=== PATIENT | female | born 1960 | race African-American/Black ===

== ENCOUNTER 2017-02-17 18:13 | Emergency (ER) | payer MEDICAID ==
[~2017-02-17] VITALS: Ht 167.6 cm; Wt 90.9 kg
[~2017-02-17 18:13] MED LIST: ASPI-1182 PO; CARV6 PO; GLIP5 PO; HYDR-3965 PO; LOSA50TA37 PO; METF500T4 PO; OMEP20 PO; PRAV40TA4 PO; SPIR25 PO; ZOLP10TA7 PO
[2017-02-17 18:46] LABS: GLUCOSE,POINT OF CARE 211 MG/DL (70-110)
[2017-02-17] MEDS ORDERED: CARV12 PO (18:46)
[2017-02-17] MEDS ORDERED: HYDROCODONE/ACETAMINOPHEN 10-325 MG TABLET PO ONE (20:45)
[2017-02-17 21:30] VITALS: BP 123/65
== END 2017-02-17 21:57 | disposition home or self-care (01) ==
LOC: EMS 18:28
DX: M79.652 Pain in left thigh (principal); M62.9 Disorder of muscle, unspecified; E11.9 Type 2 diabetes mellitus without complications; E78.00 Pure hypercholesterolemia, unspecified; I11.0 Hypertensive heart disease with heart failure; I50.9 Heart failure, unspecified; F11.20 Opioid dependence, uncomplicated; J40 Bronchitis, not specified as acute or chronic; F17.210 Nicotine dependence, cigarettes, uncomplicated; Z88.1 Allergy status to other antibiotic agents
CPT/HCPCS: 82962; 93971; 99284; 99406

== ENCOUNTER 2017-05-14 09:36 | Emergency (ER) | payer MEDICAID ==
[~2017-05-14] VITALS: Ht 167.6 cm; Wt 92.5 kg
[~2017-05-14 09:36] MED LIST changes: +CARV12 PO; -CARV6 PO
[2017-05-14] MEDS ORDERED: EVOL140S IM (10:03)
[2017-05-14] MEDS ORDERED: INSULIN REGULAR, HUMAN 100 UNITS/ML IVP ONE (10:15)
[2017-05-14] MEDS ORDERED: SODIUM CHLORIDE 0.9% 1,000 ML IV ONE ×2 (10:15→11:45)
[2017-05-14 10:59] LABS: CALCIUM, TOTAL 9.8 mg/dL (8.8-10.5); CREATININE 1.86 mg/dL (0.60-1.30)
[2017-05-14 11:17] LABS: GLUCOSE,POINT OF CARE 387 MG/DL (70-110)
[2017-05-14 12:03] VITALS: BP 125/53
[2017-05-14 12:28] LABS: GLUCOSE,POINT OF CARE 338 MG/DL (70-110)
== END 2017-05-14 12:55 | disposition home or self-care (01) ==
LOC: EMS 09:37
DX: E11.65 Type 2 diabetes mellitus with hyperglycemia (principal); N28.9 Disorder of kidney and ureter, unspecified; I11.0 Hypertensive heart disease with heart failure; I50.9 Heart failure, unspecified; E78.00 Pure hypercholesterolemia, unspecified; J40 Bronchitis, not specified as acute or chronic; F17.210 Nicotine dependence, cigarettes, uncomplicated; Z88.2 Allergy status to sulfonamides
CPT/HCPCS: 36415; 80048; 82962; 96361; 96374; 99284; J1815; J7030

== ENCOUNTER → 2018-07-23 | Outpatient (CLI) | payer MEDICARE, OTHER ==
[~2018-07-23] MED LIST changes: +EVOL140S IM; -LOSA50TA37 PO; +LOSA50TA64 PO; +METF-960 PO; -METF500T4 PO; -PRAV40TA4 PO
== END | disposition home or self-care (01) ==
LOC: RADPV 08:28
PROVIDERS: ATTEND Hospitalist
DX: I13.0 Hypertensive heart and chronic kidney disease with heart failure and stage 1 through stage 4 chronic kidney disease, or unspecified chronic kidney disease (principal); E11.22 Type 2 diabetes mellitus with diabetic chronic kidney disease; N18.3 Chronic kidney disease, stage 3 (moderate); I50.9 Heart failure, unspecified
CPT/HCPCS: 76770

== ENCOUNTER 2021-02-10 09:02 | Emergency (ER) | payer MEDICARE, OTHER ==
[~2021-02-10] VITALS: Ht 167.6 cm; Wt 96.4 kg
[~2021-02-10 09:02] MED LIST changes: -ASPI-1182 PO; +ASPI-1444 PO; -EVOL140S IM; +EVOL140S2 SQ; -HYDR-3965 PO; +HYDR-4723 PO; +LOSA50TA37 PO; -LOSA50TA64 PO; +SPIR-37 PO; -SPIR25 PO; -ZOLP10TA7 PO; +ZOLP10TA8 PO
[2021-02-10] MEDS ORDERED: ONDANSETRON HCL 4 MG/2 ML VIAL IVP ONE (09:30)
[2021-02-10 09:42] LABS: COVID AG,FIA SOURCE NASOPHARYNGEAL
[2021-02-10 09:44] LABS: BASOPHILS % (AUTO) 1.3 % (0.0-2.0); EOSINOPHILS % (AUTO) 11.1 % (1.0-6.0); HEMATOCRIT 45.1 % (36-46); HEMOGLOBIN 14.4 g/dL (12.0-16.0); LYMPHOCYTES # (AUTO) 1.8 K/uL (1.0-4.8); MEAN CORPUSCULAR HEMOGLOBIN 28.7 pg (26.0-34.0); MEAN CORPUSCULAR HGB CONC 31.9 G/dL (31.0-37.0); MEAN CORPUSCULAR VOLUME 90 fL (80-100); MONOCYTES # (AUTO) 0.5 K/uL (0.1-1.0); MONOCYTES % (AUTO) 7.6 % (2.0-9.0); NEUTROPHILS # (AUTO) 3.9 K/uL (1.8-7.7); PLATELET COUNT (AUTO) 218 K/uL (150-450); RED BLOOD CELL COUNT(AUTO) 5.03 MIL/uL (4.00-5.20); RED CELL DISTRIBUTION WIDTH 16.5 % (11.5-14.5)
[2021-02-10] MEDS ORDERED: FAMOTIDINE 10 MG/ML 2 ML VIAL IVP ONE (09:45)
[2021-02-10 09:52] LABS: CALCIUM, TOTAL 9.6 mg/dL (8.8-10.5); CREATININE 1.57 mg/dL (0.60-1.30); POTASSIUM 4.2 mmol/L (3.5-5.1)
[2021-02-10 09:58] LABS: ALBUMIN 4.2 g/dL (3.4-5.0); BILIRUBIN,TOTAL 0.3 mg/dL (0.1-1.0); TOTAL PROTEIN, SERUM 8.4 g/dL (6.4-8.2)
[2021-02-10] MEDS ORDERED: POTASSIUM CHL 10 MEQ/D5-0.45NS 1,000 ML IV ONE (10:45)
[2021-02-10 12:27] VITALS: BP 125/70
[2021-02-10 12:51] LABS: APPEARANCE,URINE CLOUDY (CLEAR); BILIRUBIN,URINE NEGATIVE (NEGATIVE); GLUCOSE, URINE (UA) NEGATIVE (NEGATIVE); KETONES,URINE NEGATIVE (NEGATIVE); LEUKOCYTE ESTERASE ,URINE NEGATIVE (NEGATIVE); NITRATE,URINE NEGATIVE (NEGATIVE); OCCULT BLOOD,URINE NEGATIVE (NEGATIVE); PH,URINE 5.5 (5.0-8.0); PROTEIN,URINE NEGATIVE (NEGATIVE)
[2021-02-10 12:55] LABS: BACTERIA,URINE None Seen /HPF (None Seen); RBC,URINE None Seen /HPF (0-2); SQUAMOUS EPITHELIAL CELL,UR Many /LPF (None Seen); WBC,URINE None Seen /HPF (0-5)
[2021-02-23] MEDS ORDERED: PIOG15TA66 PO (12:52)
[2021-02-23] MEDS ORDERED: DULA1.5P SQ (12:52)
[2021-02-23] MEDS ORDERED: PANT-31 PO (12:52)
[2021-02-23] MEDS ORDERED: CHOL-35 PO (12:52)
[2021-02-23] MEDS ORDERED: ACET-2247 PO (12:56)
[2021-02-23] MEDS ORDERED: CEFU250T87 PO (12:57)
[2021-02-23] MEDS ORDERED: METR500 PO (12:58)
== END 2021-02-10 12:49 | disposition left against medical advice (07) ==
LOC: EMS 09:02
DX: K80.20 Calculus of gallbladder without cholecystitis without obstruction (principal); R11.2 Nausea with vomiting, unspecified; R77.8 Other specified abnormalities of plasma proteins; I11.0 Hypertensive heart disease with heart failure; I50.9 Heart failure, unspecified; E11.9 Type 2 diabetes mellitus without complications; E78.00 Pure hypercholesterolemia, unspecified; F17.210 Nicotine dependence, cigarettes, uncomplicated; Z88.2 Allergy status to sulfonamides; Z79.84 Long term (current) use of oral hypoglycemic drugs; Z79.82 Long term (current) use of aspirin; Z79.899 Other long term (current) drug therapy; Z20.822 Contact with and (suspected) exposure to COVID-19
CPT/HCPCS: 36415; 71045; 74176; 76705; 76856; 80053; 81001; 82962; 83690; 84484; 85025; 87426; 93005; 96361; 96374; 96375; 99285; J2405; J3480; J3490

== ENCOUNTER 2021-02-19 13:00 | Emergency (ER) | payer MEDICARE, OTHER ==
[~2021-02-19] VITALS: Ht 167.6 cm; Wt 96.4 kg
[2021-02-19] MEDS ORDERED: MORPHINE SULFATE 2 MG/ML SYRINGE IVP ONE (13:45)
[2021-02-19] MEDS ORDERED: ONDANSETRON HCL 4 MG/2 ML VIAL IVP ONE (13:45)
[2021-02-19] MEDS ORDERED: SODIUM CHLORIDE 0.9% 1,000 ML IV ONE ×2 (13:45→14:45)
[2021-02-19 14:02] LABS: BASOPHILS % (AUTO) 1.3 % (0.0-2.0); EOSINOPHILS % (AUTO) 9.8 % (1.0-6.0); HEMATOCRIT 44.2 % (36-46); HEMOGLOBIN 14.1 g/dL (12.0-16.0); LYMPHOCYTES # (AUTO) 1.8 K/uL (1.0-4.8); LYMPHOCYTES % (AUTO) 20.9 % (22.0-44.0); MEAN CORPUSCULAR HEMOGLOBIN 28.8 pg (26.0-34.0); MEAN CORPUSCULAR HGB CONC 31.9 G/dL (31.0-37.0); MEAN CORPUSCULAR VOLUME 90 fL (80-100); MONOCYTES # (AUTO) 0.5 K/uL (0.1-1.0); NEUTROPHILS # (AUTO) 5.2 K/uL (1.8-7.7); PLATELET COUNT (AUTO) 192 K/uL (150-450); RED CELL DISTRIBUTION WIDTH 16.4 % (11.5-14.5)
[2021-02-19 14:12] LABS: CALCIUM, TOTAL 9.4 mg/dL (8.8-10.5); CREATININE 1.35 mg/dL (0.60-1.30); POTASSIUM 3.7 mmol/L (3.5-5.1)
[2021-02-19 14:15] VITALS: BP 144/80
[2021-02-19] MEDS ORDERED: LORazepam 2 MG/ML VIAL IVP ONE (14:15)
[2021-02-19] MEDS ORDERED: HALOPERIDOL LACTATE 5 MG/ML VIAL IVP ONE (14:15)
[2021-02-19 14:22] LABS: ALBUMIN 4.1 g/dL (3.4-5.0); BILIRUBIN,TOTAL 0.3 mg/dL (0.1-1.0)
[2021-02-23] MEDS ORDERED: DULA1.5P SQ (12:52)
[2021-02-23] MEDS ORDERED: PIOG15TA66 PO (12:52)
[2021-02-23] MEDS ORDERED: PANT-31 PO (12:52)
[2021-02-23] MEDS ORDERED: CHOL-35 PO (12:52)
[2021-02-23] MEDS ORDERED: ACET-2247 PO (12:56)
[2021-02-23] MEDS ORDERED: CEFU250T87 PO (12:57)
[2021-02-23] MEDS ORDERED: METR500 PO (12:58)
== END 2021-02-19 16:37 | disposition home or self-care (01) ==
LOC: EMS 13:00
DX: R10.32 Left lower quadrant pain (principal); R11.2 Nausea with vomiting, unspecified; F41.9 Anxiety disorder, unspecified; I11.0 Hypertensive heart disease with heart failure; I50.9 Heart failure, unspecified; E78.00 Pure hypercholesterolemia, unspecified; F17.210 Nicotine dependence, cigarettes, uncomplicated; Z95.0 Presence of cardiac pacemaker; Z79.84 Long term (current) use of oral hypoglycemic drugs; Z79.82 Long term (current) use of aspirin; Z88.1 Allergy status to other antibiotic agents
CPT/HCPCS: 36415; 71045; 80053; 83690; 84484; 85025; 93005; 96361; 96374; 96375; 99285; J1630; J2060; J2270; J2405; J7030

== ENCOUNTER 2021-02-27 21:10 | Inpatient (IN) | payer MEDICARE, OTHER ==
[~2021-02-27] VITALS: Ht 167.6 cm; Wt 91.0 kg
[~2021-02-27 21:10] MED LIST changes: +ACET-2247 PO; +CEFU250T87 PO; +CHOL-35 PO; -HYDR-4723 PO; +MEBROFENIN TC99M/MCL ISOTOPE 1 EA INJ INJ ONE; +METR500 PO; -OMEP20 PO
[2021-02-28] MEDS ORDERED: OxyCODONE HCL/ACETAMINOPHEN 10-325 MG TABLET PO ONE (00:30)
[2021-02-28] MEDS ORDERED: ONDANSETRON HCL 4 MG TABLET PO ONE (00:30)
[2021-02-28] MEDS ORDERED: SODIUM CHLORIDE 0.9% 1,000 ML IV ONE (00:45)
[2021-02-28] MEDS ORDERED: IOHEXOL 350 MG/ML 100 ML VIAL ONE (00:54)
[2021-02-28] MEDS ORDERED: SODIUM CHLORIDE 0.9% 100 ML ONE (00:55)
[2021-02-28 01:33] LABS: BASOPHILS % (AUTO) 0.9 % (0.0-2.0); EOSINOPHILS % (AUTO) 9.8 % (1.0-6.0); HEMATOCRIT 41.7 % (36-46); HEMOGLOBIN 13.4 g/dL (12.0-16.0); LYMPHOCYTES % (AUTO) 14.5 % (22.0-44.0); MEAN CORPUSCULAR HEMOGLOBIN 28.8 pg (26.0-34.0); MEAN CORPUSCULAR HGB CONC 32.1 G/dL (31.0-37.0); MEAN CORPUSCULAR VOLUME 90 fL (80-100); MONOCYTES # (AUTO) 0.9 K/uL (0.1-1.0); MONOCYTES % (AUTO) 6.1 % (2.0-9.0); NEUTROPHILS # (AUTO) 9.7 K/uL (1.8-7.7); NEUTROPHILS % (AUTO) 68.7 % (40.0-70.0); PLATELET COUNT (AUTO) 237 K/uL (150-450); RED BLOOD CELL COUNT(AUTO) 4.65 MIL/uL (4.00-5.20)
[2021-02-28 01:36] LABS: CALCIUM, TOTAL 9.1 mg/dL (8.8-10.5); CREATININE 1.67 mg/dL (0.60-1.30); POTASSIUM 3.5 mmol/L (3.5-5.1)
[2021-02-28 01:43] LABS: ALBUMIN 3.4 g/dL (3.4-5.0); BILIRUBIN,TOTAL 0.6 mg/dL (0.1-1.0); TOTAL PROTEIN, SERUM 7.7 g/dL (6.4-8.2)
[2021-02-28] MEDS ORDERED: ONDANSETRON HCL 4 MG/2 ML VIAL IVP PRN (03:45)
[2021-02-28] MEDS ORDERED: ACETAMINOPHEN 325 MG TABLET PO PRN (03:45)
[2021-02-28] MEDS ORDERED: 0.9% SODIUM CHLORIDE 10 ML SYRINGE IVP PRN (03:45)
[2021-02-28] MEDS ORDERED: MORPHINE SULFATE 4 MG/ML SYRINGE IVP ONE (04:00)
[2021-02-28] MEDS ORDERED: DEXTROSE 50%-WATER 25 GM/50 ML SYRINGE IVP PRN (04:30)
[2021-02-28 04:54] LABS: COVID AG,FIA SOURCE NASOPHARYNGEAL
[2021-02-28] MEDS: PIPERACILLIN/TAZO 3.375 GM/D5W 50 ML IV SCH ×4 (05:03→23:06)
[2021-02-28 05:15] LABS: GLUCOSE,POINT OF CARE 125 MG/DL (70-110)
[2021-02-28] MEDS: HYDROmorphone 2 MG/ML VIAL IVP PRN ×3 (05:59→19:01)
[2021-02-28] MEDS ORDERED: HEPARIN SODIUM,PORCINE 5,000 UNITS/ML VIAL SQ SCH (08:00)
[2021-02-28] MEDS: ACETAMINOPHEN 325 MG TABLET PO PRN (08:58)
[2021-02-28] MEDS: CARVEDILOL 6.25 MG TABLET PO SCH ×2 (09:51→22:12)
[2021-02-28] MEDS: ONDANSETRON HCL 4 MG/2 ML VIAL IVP PRN ×2 (12:52→19:01)
[2021-02-28] MEDS: INSULIN GLARGINE,HUM.REC.ANLOG 100 UNITS/ML SQ SCH (20:12)
[2021-02-28] MEDS ORDERED: FUROSEMIDE 40 MG/4 ML VIAL IVP ONE (22:00)
[2021-02-28] MEDS ORDERED: HYDROmorphone 2 MG/ML VIAL IVP ONE (22:15)
[2021-02-28] MEDS ORDERED: ONDANSETRON HCL 4 MG/2 ML VIAL IVP ONE (22:15)
[2021-02-28 22:20] LABS: CALCIUM, TOTAL 8.8 mg/dL (8.8-10.5); CREATININE 1.38 mg/dL (0.60-1.30); POTASSIUM 3.8 mmol/L (3.5-5.1)
[2021-03-01 04:00] VITALS: BP 112/56
[2021-03-01] MEDS: HYDROmorphone 2 MG/ML VIAL IVP PRN ×3 (04:00→23:43)
[2021-03-01] MEDS: ONDANSETRON HCL 4 MG/2 ML VIAL IVP PRN ×2 (04:00→10:34)
[2021-03-01] MEDS ORDERED: SODIUM CHLORIDE 0.9% 250 ML IV ONE (06:06)
[2021-03-01] MEDS: INSULIN LISPRO 100 UNITS/ML SQ PRN ×2 (06:15→20:36)
[2021-03-01] MEDS: PIPERACILLIN/TAZO 3.375 GM/D5W 50 ML IV SCH ×4 (06:45→23:31)
[2021-03-01 07:44] LABS: CALCIUM, TOTAL 8.7 mg/dL (8.8-10.5); CREATININE 1.38 mg/dL (0.60-1.30); POTASSIUM 3.6 mmol/L (3.5-5.1)
[2021-03-01 08:09] VITALS: BP 112/74
[2021-03-01] MEDS: ASPIRIN 81 MG CHEWABLE TABLET PO SCH (09:00)
[2021-03-01] MEDS: CARVEDILOL 6.25 MG TABLET PO SCH ×2 (09:00→20:38)
[2021-03-01] MEDS ORDERED: FLUMAZENIL 0.1 MG/ML 5 ML VIAL IVP ONE (09:07)
[2021-03-01] MEDS ORDERED: FentaNYL CITRATE PF 100 MCG/2 ML VIAL ONE (09:07)
[2021-03-01] MEDS ORDERED: MIDAZOLAM HCL 2 MG/2 ML VIAL ONE (09:07)
[2021-03-01] MEDS ORDERED: NALOXONE HCL 0.4 MG/ML VIAL ONE (09:07)
[2021-03-01 11:12] LABS: GLUCOMETER DEV NAME(LOC) 5N.1C; GLUCOSE,POINT OF CARE 240 MG/DL (70-110)
[2021-03-01 12:07] LABS: PROTHROMBIN TIME 11.1 SEC (9.4-11.6)
[2021-03-01 12:13] VITALS: BP 101/55
[2021-03-01] MEDS ORDERED: FUROSEMIDE 20 MG/2 ML VIAL IVP ONE ×2 (13:30→15:00)
[2021-03-01 14:20] LABS: ABG A-A DIFF O2 153.1 mmHg (10-20.0); ABG CARBOXYHEMOGLOBIN 0.9 % (0.0-1.5); ABG HCO3 28.3 mmol/L (22.0-26.0); ABG METHEMOGLOBIN 0.3 % (0.0-1.5); ABG OXYGEN CONTENT 16.5 mL/dL (15.0-23.0); ABG OXYGEN SATURATION 90.3 % (95.0-98.0); ABG OXYHEMOGLOBIN 89.2 % (94.0-100.0); ABG PCO2 42 mmHg (35-45); ABG PH 7.454 (7.35-7.450); ABG TOTAL HEMOGLOBIN 13.2 G/dL (12.0-18.0); PO2, ARTERIAL BG 54.8 mmHg (79.0-87.0); SITE, BLOOD GAS RT RADIAL; SOURCE, BLOOD GAS ARTERIAL
[2021-03-01 14:21] LABS: O2 DEVICE,BLOOD GAS CANNULA (ROOM AIR)
[2021-03-01 15:31] VITALS: BP 110/62
[2021-03-01] MEDS ORDERED: RINGERS SOLUTION,LACTATED 1,000 ML IV ONE (16:30)
[2021-03-01 17:51] LABS: GLUCOMETER DEV NAME(LOC) 5N.1C; GLUCOSE,POINT OF CARE 144 MG/DL (70-110)
[2021-03-01 19:35] VITALS: BP 100/73
[2021-03-01] MEDS: ACETAMINOPHEN 325 MG TABLET PO PRN (20:28)
[2021-03-01] MEDS: INSULIN GLARGINE,HUM.REC.ANLOG 100 UNITS/ML SQ SCH (20:36)
[2021-03-01 23:33] LABS: GLUCOMETER DEV NAME(LOC) 5S.2B; GLUCOSE,POINT OF CARE 233 MG/DL (70-110)
[2021-03-01 23:40] VITALS: BP 98/53
[2021-03-02 03:45] VITALS: BP 107/77
[2021-03-02] MEDS: HYDROmorphone 2 MG/ML VIAL IVP PRN (04:00)
[2021-03-02] MEDS: PIPERACILLIN/TAZO 3.375 GM/D5W 50 ML IV SCH ×2 (04:00→11:51)
[2021-03-02] MEDS ORDERED: ONDANSETRON HCL 4 MG/2 ML VIAL IVP ONE (05:47)
[2021-03-02] MEDS ORDERED: MIDAZOLAM HCL 2 MG/2 ML VIAL IVP ONE (05:47)
[2021-03-02] MEDS ORDERED: LIDOCAINE/PF 2% 5 ML VIAL IM ONE (05:47)
[2021-03-02] MEDS ORDERED: PROPOFOL 1% 20 ML VIAL IVP ONE (05:47)
[2021-03-02] MEDS ORDERED: FentaNYL CITRATE PF 100 MCG/2 ML VIAL IVP ONE (05:47)
[2021-03-02 07:31] LABS: GLUCOMETER DEV NAME(LOC) 5S.1; GLUCOSE,POINT OF CARE 112 MG/DL (70-110)
[2021-03-02 07:32] VITALS: BP 100/64
[2021-03-02 08:03] LABS: BASOPHILS % (AUTO) 0.7 % (0.0-2.0); EOSINOPHILS % (AUTO) 10.8 % (1.0-6.0); HEMATOCRIT 37.1 % (36-46); LYMPHOCYTES % (AUTO) 17.9 % (22.0-44.0); MEAN CORPUSCULAR HGB CONC 32.3 G/dL (31.0-37.0); MEAN CORPUSCULAR VOLUME 90 fL (80-100); MONOCYTES # (AUTO) 0.9 K/uL (0.1-1.0); MONOCYTES % (AUTO) 8.5 % (2.0-9.0); NEUTROPHILS # (AUTO) 6.8 K/uL (1.8-7.7); NEUTROPHILS % (AUTO) 62.1 % (40.0-70.0); PLATELET COUNT (AUTO) 206 K/uL (150-450); RED BLOOD CELL COUNT(AUTO) 4.14 MIL/uL (4.00-5.20); RED CELL DISTRIBUTION WIDTH 15.6 % (11.5-14.5)
[2021-03-02] MEDS: CARVEDILOL 6.25 MG TABLET PO SCH (08:30)
[2021-03-02] MEDS: ASPIRIN 81 MG CHEWABLE TABLET PO SCH (08:31)
[2021-03-02 08:42] LABS: ALBUMIN 2.7 g/dL (3.4-5.0); BILIRUBIN,TOTAL 0.8 mg/dL (0.1-1.0); CALCIUM, TOTAL 8.8 mg/dL (8.8-10.5); CREATININE 1.55 mg/dL (0.60-1.30); POTASSIUM 3.6 mmol/L (3.5-5.1); TOTAL PROTEIN, SERUM 6.9 g/dL (6.4-8.2)
[2021-03-02 11:10] VITALS: BP 107/60
[2021-03-02 11:58] LABS: GLUCOMETER DEV NAME(LOC) 5N.3; GLUCOSE,POINT OF CARE 143 MG/DL (70-110)
[2021-03-02] MEDS: INSULIN LISPRO 100 UNITS/ML SQ PRN (12:06)
[2021-03-02 17:46] LABS: GLUCOMETER DEV NAME(LOC) 5S.2B; GLUCOSE,POINT OF CARE 157 MG/DL (70-110)
== END 2021-03-02 13:25 | disposition left against medical advice (07) | DRG 445 ==
LOC: EMS 21:14 → 5S 02-28 04:28 → 6N 02-28 04:28 → UNDOADMIN 02-28 04:28 → 5N 03-01 02:16
PROVIDERS: ADMIT Internal Medicine; ATTEND Internal Medicine
PROC: 0F9C8ZZ Drainage of Ampulla of Vater, Via Natural or Artificial Opening Endoscopic (ICD-10-PCS; 2021-03-01)
PROC: BF141ZZ Fluoroscopy of Gallbladder, Bile Ducts and Pancreatic Ducts using Low Osmolar Contrast (ICD-10-PCS; principal; 2021-03-01 17:30)
DX: K82.8 Other specified diseases of gallbladder (principal); N17.9 Acute kidney failure, unspecified; K83.8 Other specified diseases of biliary tract; D72.829 Elevated white blood cell count, unspecified; E66.9 Obesity, unspecified; K86.89 Other specified diseases of pancreas; I25.10 Atherosclerotic heart disease of native coronary artery without angina pectoris; Z82.49 Family history of ischemic heart disease and other diseases of the circulatory system; Z83.3 Family history of diabetes mellitus; Z87.891 Personal history of nicotine dependence; Z90.49 Acquired absence of other specified parts of digestive tract; Z95.0 Presence of cardiac pacemaker; Z96.659 Presence of unspecified artificial knee joint; E11.9 Type 2 diabetes mellitus without complications; I11.0 Hypertensive heart disease with heart failure; I50.9 Heart failure, unspecified; R09.02 Hypoxemia; Z88.8 Allergy status to other drugs, medicaments and biological substances; Z88.2 Allergy status to sulfonamides; E78.00 Pure hypercholesterolemia, unspecified; Z87.01 Personal history of pneumonia (recurrent); Z98.891 History of uterine scar from previous surgery; Z20.822 Contact with and (suspected) exposure to COVID-19; Z53.29 Procedure and treatment not carried out because of patient's decision for other reasons
CPT/HCPCS: 36600; 71045; 74177; 78226; 80048; 80053; 82805; 82962; 83605; 83690; 83880; 84484; 85025; 85610; 87040; 87081; 93005; 93306; 99285; A9537; J1170; J1815; J1940; J2250; J2270; J2310; J2405; J2543; J2704; J3010; J3490; J7030; J7050; Q0162; Q9967; 36415-L1; 36415-TC; U0003

== ENCOUNTER 2021-03-03 23:43 | Emergency (ER) | payer MEDICARE, OTHER ==
[~2021-03-03] VITALS: Ht 160 cm; Wt 79.5 kg
[2021-03-04 03:33] LABS: EOSINOPHILS % (AUTO) 6.5 % (1.0-6.0); HEMATOCRIT 37.7 % (36-46); HEMOGLOBIN 11.8 g/dL (12.0-16.0); LYMPHOCYTES # (AUTO) 1.8 K/uL (1.0-4.8); LYMPHOCYTES % (AUTO) 16.5 % (22.0-44.0); MEAN CORPUSCULAR HEMOGLOBIN 28.6 pg (26.0-34.0); MEAN CORPUSCULAR HGB CONC 31.4 G/dL (31.0-37.0); MEAN CORPUSCULAR VOLUME 91 fL (80-100); MONOCYTES # (AUTO) 0.9 K/uL (0.1-1.0); MONOCYTES % (AUTO) 8.5 % (2.0-9.0); NEUTROPHILS # (AUTO) 7.5 K/uL (1.8-7.7); NEUTROPHILS % (AUTO) 67.5 % (40.0-70.0); PLATELET COUNT (AUTO) 233 K/uL (150-450); RED BLOOD CELL COUNT(AUTO) 4.14 MIL/uL (4.00-5.20); RED CELL DISTRIBUTION WIDTH 16.2 % (11.5-14.5)
[2021-03-04 03:41] LABS: CALCIUM, TOTAL 8.8 mg/dL (8.8-10.5); CREATININE 1.42 mg/dL (0.60-1.30); POTASSIUM 3.6 mmol/L (3.5-5.1)
[2021-03-04 03:47] LABS: ALBUMIN 2.9 g/dL (3.4-5.0); BILIRUBIN,TOTAL 0.4 mg/dL (0.1-1.0)
[2021-03-04 03:51] LABS: PLATELET MORPHOLOGY COMMENT GIANT PLTS PRESENT
[2021-03-04 04:25] LABS: APPEARANCE,URINE CLOUDY (CLEAR); BILIRUBIN,URINE NEGATIVE (NEGATIVE); GLUCOSE, URINE (UA) 100 mg/dL (NEGATIVE); KETONES,URINE TRACE mg/dL (NEGATIVE); LEUKOCYTE ESTERASE ,URINE SMALL (NEGATIVE); NITRATE,URINE NEGATIVE (NEGATIVE); OCCULT BLOOD,URINE NEGATIVE (NEGATIVE); PH,URINE 5.5 (5.0-8.0); PROTEIN,URINE TRACE (NEGATIVE); UROBILINOGEN,URINE 0.2 mg/dL (<=1.0)
[2021-03-04 04:29] LABS: BACTERIA,URINE Rare /HPF (None Seen); SQUAMOUS EPITHELIAL CELL,UR Many /LPF (None Seen)
[2021-03-04 05:00] VITALS: BP 119/63
== END 2021-03-04 05:15 | disposition home or self-care (01) ==
LOC: EMS 23:50
DX: R10.9 Unspecified abdominal pain (principal); R81 Glycosuria; I11.0 Hypertensive heart disease with heart failure; I50.9 Heart failure, unspecified; E11.9 Type 2 diabetes mellitus without complications; E78.00 Pure hypercholesterolemia, unspecified; Z88.2 Allergy status to sulfonamides; Z88.8 Allergy status to other drugs, medicaments and biological substances
CPT/HCPCS: 80053; 81001; 82962; 83690; 85025; 87086; 99283

== ENCOUNTER 2021-10-09 11:05 | Emergency (ER) | payer MEDICARE, OTHER ==
[~2021-10-09] VITALS: Ht 170.2 cm; Wt 90.9 kg
[2021-10-09 13:15] VITALS: BP 112/71
== END 2021-10-09 13:20 | disposition home or self-care (01) ==
LOC: EMS 11:05
DX: K43.9 Ventral hernia without obstruction or gangrene (principal); I11.0 Hypertensive heart disease with heart failure; I50.9 Heart failure, unspecified; E78.00 Pure hypercholesterolemia, unspecified; E11.9 Type 2 diabetes mellitus without complications; F17.210 Nicotine dependence, cigarettes, uncomplicated; Z95.0 Presence of cardiac pacemaker; Z91.013 Allergy to seafood; Z88.8 Allergy status to other drugs, medicaments and biological substances
CPT/HCPCS: 99281; 99284; Z7502

== ENCOUNTER 2022-03-02 12:21 | Emergency (ER) | payer MEDICARE, OTHER ==
[~2022-03-02] VITALS: Ht 170.2 cm; Wt 94.0 kg
[2022-03-02 12:26] VITALS: BP 109/56
[2022-03-02] MEDS ORDERED: SPIR-37 PO (12:29)
[2022-03-02] MEDS ORDERED: PANT-31 PO (12:29)
[2022-03-02] MEDS ORDERED: METF-1211 PO (12:29)
[2022-03-02] MEDS ORDERED: ASPI-1450 PO (12:29)
[2022-03-02] MEDS ORDERED: CARV6 PO (12:29)
[2022-03-02] MEDS ORDERED: GLIP5TAB12 PO (12:29)
[2022-03-02] MEDS ORDERED: BACL10TA PO (13:19)
[2022-03-02] MEDS ORDERED: ASPI-1444 PO (13:19)
[2022-03-02] MEDS ORDERED: PIOG15TA66 PO (13:19)
[2022-03-02] MEDS ORDERED: EVOL140P3 SQ (13:19)
[2022-03-02] MEDS ORDERED: AMIT50TA3 PO (13:19)
[2022-03-02] MEDS ORDERED: OXYC-618 PO (13:19)
[2022-03-02] MEDS ORDERED: DULA4.5P SQ (13:19)
[2022-03-02] MEDS ORDERED: MONT-40 PO (13:19)
[2022-03-02] MEDS ORDERED: CARV12 PO (13:19)
[2022-03-02] MEDS ORDERED: INSLAN SQ (13:19)
== END 2022-03-02 14:54 | disposition left against medical advice (07) ==
LOC: EMS 12:26
DX: Z53.21 Procedure and treatment not carried out due to patient leaving prior to being seen by health care provider (principal)

== ENCOUNTER 2022-06-08 11:27 | Emergency (ER) | payer MEDICARE, OTHER ==
[~2022-06-08] VITALS: Ht 165.1 cm; Wt 98.0 kg
[~2022-06-08 11:27] MED LIST changes: -ACET-2247 PO; +AMIT50TA3 PO; +BACL10TA PO; -CEFU250T87 PO; -CHOL-35 PO; +DULA4.5P SQ; +EVOL140P3 SQ; -EVOL140S2 SQ; -GLIP5 PO; +GLIP5TAB12 PO; +INSLAN SQ; -LOSA50TA37 PO; -MEBROFENIN TC99M/MCL ISOTOPE 1 EA INJ INJ ONE; +METF-1211 PO; -METF-960 PO; -METR500 PO; +MONT-40 PO; +OXYC-618 PO; +PANT-31 PO; +PIOG15TA66 PO; -ZOLP10TA8 PO
[2022-06-08 11:31] VITALS: BP 104/78
[2022-06-08 12:38] LABS: APPEARANCE,URINE CLEAR (CLEAR); BILIRUBIN,URINE NEGATIVE (NEGATIVE); GLUCOSE, URINE (UA) NEGATIVE (NEGATIVE); KETONES,URINE NEGATIVE (NEGATIVE); LEUKOCYTE ESTERASE ,URINE NEGATIVE (NEGATIVE); OCCULT BLOOD,URINE NEGATIVE (NEGATIVE); PH,URINE 5.5 (5.0-8.0); PROTEIN,URINE NEGATIVE (NEGATIVE); SPECIFIC GRAVITIY, URINE 1.012 (1.003-1.030); UROBILINOGEN,URINE <=1.0 mg/dL (<=1.0)
[2022-06-08 13:13] LABS: NITRATE,URINE NEGATIVE (NEGATIVE)
== END 2022-06-08 12:59 | disposition still patient (30) ==
LOC: EMS 11:40
DX: N39.0 Urinary tract infection, site not specified (principal); I11.0 Hypertensive heart disease with heart failure; I50.9 Heart failure, unspecified; E11.9 Type 2 diabetes mellitus without complications; E78.00 Pure hypercholesterolemia, unspecified; J44.9 Chronic obstructive pulmonary disease, unspecified; J40 Bronchitis, not specified as acute or chronic; K80.20 Calculus of gallbladder without cholecystitis without obstruction; F17.210 Nicotine dependence, cigarettes, uncomplicated; F11.20 Opioid dependence, uncomplicated; Z90.49 Acquired absence of other specified parts of digestive tract; Z88.2 Allergy status to sulfonamides; Z98.890 Other specified postprocedural states
CPT/HCPCS: 81003; 99283

== ENCOUNTER 2023-06-07 10:37 | Emergency (ER) | payer MEDICARE, OTHER ==
[~2023-06-07] VITALS: Ht 167.6 cm; Wt 101.4 kg
[~2023-06-07 10:37] MED LIST changes: -GLIP5TAB12 PO; +GLIP5TAB16 PO
[2023-06-07 10:43] VITALS: BP 114/70; PULSE 95; RESP 16; TEMP 98.1
[2023-06-07 11:02] LABS: APPEARANCE,URINE HAZY (CLEAR); BILIRUBIN,URINE NEGATIVE (NEGATIVE); COLOR,URINE DARK YELLOW (YELLOW); GLUCOSE, URINE (UA) NEGATIVE (NEGATIVE); KETONES,URINE NEGATIVE (NEGATIVE); LEUKOCYTE ESTERASE ,URINE NEGATIVE (NEGATIVE); NITRATE,URINE POSITIVE (NEGATIVE); OCCULT BLOOD,URINE NEGATIVE (NEGATIVE); PROTEIN,URINE NEGATIVE (NEGATIVE); SPECIFIC GRAVITIY, URINE 1.016 (1.003-1.030)
[2023-06-07 11:12] LABS: BACTERIA,URINE None Seen /HPF (None Seen); RBC,URINE None Seen /HPF (0-2); SQUAMOUS EPITHELIAL CELL,UR Few /LPF (None Seen); WBC,URINE None Seen /HPF (0-5)
[2023-06-07] MEDS ORDERED: CEPH-558 PO (12:01)
== END 2023-06-07 12:41 | disposition home or self-care (01) ==
LOC: EMS 10:42
DX: R35.0 Frequency of micturition (principal); E11.9 Type 2 diabetes mellitus without complications; E78.00 Pure hypercholesterolemia, unspecified; I11.0 Hypertensive heart disease with heart failure; I50.9 Heart failure, unspecified; J44.9 Chronic obstructive pulmonary disease, unspecified; F17.210 Nicotine dependence, cigarettes, uncomplicated; F11.20 Opioid dependence, uncomplicated; Z90.49 Acquired absence of other specified parts of digestive tract; Z88.2 Allergy status to sulfonamides; Z98.890 Other specified postprocedural states
CPT/HCPCS: 81001; 99283

== ENCOUNTER 2023-11-24 12:20 | Inpatient (IN) | payer MEDICARE, OTHER ==
[~2023-11-24] VITALS: Ht 167.6 cm; Wt 99.4 kg
[~2023-11-24 12:20] MED LIST changes: +CHOL500013 PO; +DOCU250C99 PO; -DULA4.5P SQ; -MONT-40 PO; +NICO4GUM35 PO; +SEMA2PEN SQ; +VARE1TAB28 PO
[2023-11-24 13:04] LABS: EOSINOPHILS % (AUTO) 4.8 % (1.0-6.0); HEMATOCRIT 45.9 % (36-46); HEMOGLOBIN 14.7 g/dL (12.0-16.0); LYMPHOCYTES # (AUTO) 1.7 K/uL (1.0-4.8); LYMPHOCYTES % (AUTO) 20.2 % (22.0-44.0); MEAN CORPUSCULAR HEMOGLOBIN 29.6 pg (26.0-34.0); MEAN CORPUSCULAR HGB CONC 32.1 G/dL (31.0-37.0); MEAN CORPUSCULAR VOLUME 92 fL (80-100); MONOCYTES # (AUTO) 0.5 K/uL (0.1-1.0); MONOCYTES % (AUTO) 6.5 % (2.0-9.0); NEUTROPHILS # (AUTO) 5.6 K/uL (1.8-7.7); NEUTROPHILS % (AUTO) 67.5 % (40.0-70.0); PLATELET COUNT (AUTO) 206 K/uL (150-450); RED BLOOD CELL COUNT(AUTO) 4.97 MIL/uL (4.00-5.20); RED CELL DISTRIBUTION WIDTH 16.3 % (11.5-14.5); WHITE BLOOD COUNT (AUTO) 8.3 K/uL (4.5-11.0)
[2023-11-24] MEDS ORDERED: SODIUM CHLORIDE 0.9% 1,000 ML ONE (13:05)
[2023-11-24] MEDS ORDERED: ONDANSETRON HCL 4 MG/2 ML VIAL ONE (13:05)
[2023-11-24] MEDS ORDERED: NITR0.4T50 SL (13:08)
[2023-11-24] MEDS: ONDANSETRON HCL 4 MG/2 ML VIAL IVP ONE ×2 (13:08→15:43)
[2023-11-24] MEDS: SODIUM CHLORIDE 0.9% 1,000 ML IV ONE (13:08)
[2023-11-24 13:17] LABS: CALCIUM, TOTAL 9.9 mg/dL (8.8-10.5); CREATININE 1.6 mg/dL (0.60-1.30)
[2023-11-24 13:25] LABS: TROPONIN I-HIGH SENSITIVITY 243 ng/L (<51)
[2023-11-24 13:59] LABS: APPEARANCE,URINE CLEAR (CLEAR); BILIRUBIN,URINE NEGATIVE (NEGATIVE); COLOR,URINE LIGHT YELLOW (YELLOW); GLUCOSE, URINE (UA) NEGATIVE (NEGATIVE); KETONES,URINE NEGATIVE (NEGATIVE); LEUKOCYTE ESTERASE ,URINE NEGATIVE (NEGATIVE); NITRATE,URINE NEGATIVE (NEGATIVE); OCCULT BLOOD,URINE NEGATIVE (NEGATIVE); PROTEIN,URINE NEGATIVE (NEGATIVE); SPECIFIC GRAVITIY, URINE 1.021 (1.003-1.030); UROBILINOGEN,URINE <=1.0 mg/dL (<=1.0)
[2023-11-24] MEDS ORDERED: BISACODYL 10 MG RECTAL RECTAL SUPPOSITORY PR PRN (15:45)
[2023-11-24] MEDS ORDERED: ZOLPIDEM TARTRATE 5 MG TABLET PO PRN (15:45)
[2023-11-24] MEDS ORDERED: HYDROCODONE/ACETAMINOPHEN 5-325 MG TABLET PO PRN (15:45)
[2023-11-24] MEDS ORDERED: MAGNESIUM HYDROXIDE SUSPENSION 30 ML UDCUP PO PRN (15:45)
[2023-11-24] MEDS ORDERED: ACETAMINOPHEN 325 MG TABLET PO PRN (15:45)
[2023-11-24] MEDS: METOCLOPRAMIDE HCL 5 MG/ML 2 ML VIAL IVP SCH (16:12)
[2023-11-24] MEDS: HEPARIN SODIUM,PORCINE 5,000 UNITS/ML VIAL SQ SCH (16:12)
[2023-11-24] MEDS: MORPHINE SULFATE 2 MG/ML SYRINGE IVP PRN (16:13)
[2023-11-24 16:34] LABS: ALBUMIN 3.2 g/dL (3.4-5.0); BILIRUBIN,DIRECT 0.1 mg/dL (0.00-0.20); BILIRUBIN,TOTAL 0.4 mg/dL (0.1-1.0); TOTAL PROTEIN, SERUM 6.3 g/dL (6.4-8.2)
[2023-11-24 16:59] LABS: ALCOHOL, URINE DRUG SCREEN NEGATIVE (NEGATIVE); AMPHET/METH SCREEN,URINE NEGATIVE (NEGATIVE); BARBITURATE SCREEN, URINE NEGATIVE (NEGATIVE); BENZODIAZEPINES SCREEN,URINE NEGATIVE (NEGATIVE); CANNABINOID SCREEN,URINE NEGATIVE (NEGATIVE); COCAINE SCREEN,URINE NEGATIVE (NEGATIVE); METHADONE SCREEN, URINE NEGATIVE (NEGATIVE); OPIATE SCREEN,URINE NEGATIVE (NEGATIVE); PHENCYCLIDINE SCREEN,URINE NEGATIVE (NEGATIVE)
[2023-11-24 18:01] VITALS: BP 109/74; PULSE 86; RESP 22; TEMP 98
[2023-11-24 18:11] LABS: GLUCOMETER DEV NAME(LOC) 5S.2D; GLUCOSE,POINT OF CARE 106 MG/DL (70-110)
[2023-11-24] MEDS ORDERED: DEXTROSE 50%-WATER 25 GM/50 ML SYRINGE IVP PRN (18:15)
[2023-11-24 19:53] VITALS: BP 114/65; PULSE 89; RESP 20; TEMP 98.3
[2023-11-24] MEDS: AMITRIPTYLINE HCL 50 MG TABLET PO SCH (20:35)
[2023-11-24] MEDS: CARVEDILOL 12.5 MG TABLET PO SCH (20:35)
[2023-11-24] MEDS: DOCUSATE SODIUM 100 MG CAPSULE PO SCH (20:35)
[2023-11-24] MEDS: PANTOPRAZOLE SODIUM 40 MG/VIAL IVP SCH (20:36)
[2023-11-24] MEDS: INSULIN LISPRO 100 UNITS/ML SQ PRN (20:36)
[2023-11-24 20:45] LABS: GLUCOMETER DEV NAME(LOC) 5N.2C; GLUCOSE,POINT OF CARE 164 MG/DL (70-110)
[2023-11-24 23:06] VITALS: BP 117/57; PULSE 88; RESP 19; TEMP 98.3
[2023-11-25 04:21] VITALS: BP 109/61; PULSE 81; RESP 19; TEMP 98.4
[2023-11-25 05:06] LABS: GLUCOMETER DEV NAME(LOC) 5S.2D; GLUCOSE,POINT OF CARE 84 MG/DL (70-110)
[2023-11-25 07:17] LABS: BASOPHILS % (AUTO) 1.1 % (0.0-2.0); EOSINOPHILS % (AUTO) 4.8 % (1.0-6.0); HEMATOCRIT 42.9 % (36-46); HEMOGLOBIN 13.4 g/dL (12.0-16.0); LYMPHOCYTES # (AUTO) 3.3 K/uL (1.0-4.8); LYMPHOCYTES % (AUTO) 35.3 % (22.0-44.0); MEAN CORPUSCULAR HEMOGLOBIN 29.4 pg (26.0-34.0); MEAN CORPUSCULAR HGB CONC 31.1 G/dL (31.0-37.0); MEAN CORPUSCULAR VOLUME 95 fL (80-100); MONOCYTES # (AUTO) 0.8 K/uL (0.1-1.0); MONOCYTES % (AUTO) 8.1 % (2.0-9.0); NEUTROPHILS # (AUTO) 4.8 K/uL (1.8-7.7); NEUTROPHILS % (AUTO) 50.7 % (40.0-70.0); PLATELET COUNT (AUTO) 177 K/uL (150-450); RED BLOOD CELL COUNT(AUTO) 4.54 MIL/uL (4.00-5.20); RED CELL DISTRIBUTION WIDTH 16.5 % (11.5-14.5); WHITE BLOOD COUNT (AUTO) 9.5 K/uL (4.5-11.0)
[2023-11-25 07:35] LABS: ALBUMIN 3.1 g/dL (3.4-5.0); BILIRUBIN,TOTAL 0.5 mg/dL (0.1-1.0); CALCIUM, TOTAL 8.9 mg/dL (8.8-10.5); CREATININE 1.47 mg/dL (0.60-1.30); POTASSIUM 3.6 mmol/L (3.5-5.1); TOTAL PROTEIN, SERUM 6.1 g/dL (6.4-8.2)
[2023-11-25 07:49] VITALS: BP 110/50; PULSE 83; RESP 18; TEMP 98.5
[2023-11-25] MEDS: CHOLECALCIFEROL (VIT D3) 5,000 [125 MCG] UNITS CAPSULE PO SCH (07:59)
[2023-11-25] MEDS: SPIRONOLACTONE 25 MG TABLET PO SCH (07:59)
[2023-11-25] MEDS: HYDROCODONE/ACETAMINOPHEN 5-325 MG TABLET PO PRN (07:59)
[2023-11-25] MEDS: ASPIRIN 81 MG DR TABLET PO SCH (08:00)
[2023-11-25 08:21] LABS: TROPONIN I-HIGH SENSITIVITY 182 ng/L (<51)
[2023-11-25] MEDS ORDERED: PANTOPRAZOLE SODIUM 40 MG DR TABLET PO SCH (09:00)
[2023-11-25 11:41] VITALS: BP 117/71; PULSE 85; RESP 18; TEMP 97.9
[2023-11-25] MEDS: ONDANSETRON HCL 4 MG/2 ML VIAL IVP PRN (13:16)
[2023-11-25] MEDS ORDERED: METO5TAB95 PO (14:07)
[2023-11-25 17:51] LABS: GLUCOMETER DEV NAME(LOC) 5S.2D; GLUCOSE,POINT OF CARE 185 MG/DL (70-110)
== END 2023-11-25 14:45 | disposition home or self-care (01) | DRG 392 ==
LOC: EMS 12:20 → EDH 16:39 → 5N 17:40
PROVIDERS: ADMIT Internal Medicine; ATTEND Internal Medicine
DX: A09 Infectious gastroenteritis and colitis, unspecified (principal); I13.0 Hypertensive heart and chronic kidney disease with heart failure and stage 1 through stage 4 chronic kidney disease, or unspecified chronic kidney disease; E11.22 Type 2 diabetes mellitus with diabetic chronic kidney disease; N18.30 Chronic kidney disease, stage 3 unspecified; E11.65 Type 2 diabetes mellitus with hyperglycemia; R79.89 Other specified abnormal findings of blood chemistry; E66.9 Obesity, unspecified; I50.9 Heart failure, unspecified; E78.00 Pure hypercholesterolemia, unspecified; J44.9 Chronic obstructive pulmonary disease, unspecified; F11.21 Opioid dependence, in remission; I25.10 Atherosclerotic heart disease of native coronary artery without angina pectoris; Z88.8 Allergy status to other drugs, medicaments and biological substances; Z79.4 Long term (current) use of insulin; Z88.2 Allergy status to sulfonamides; Z79.899 Other long term (current) drug therapy; Z79.82 Long term (current) use of aspirin; T50.995A Adverse effect of other drugs, medicaments and biological substances, initial encounter; Z87.891 Personal history of nicotine dependence; Z90.49 Acquired absence of other specified parts of digestive tract; Z95.810 Presence of automatic (implantable) cardiac defibrillator; Z98.891 History of uterine scar from previous surgery; Z68.35 Body mass index [BMI] 35.0-35.9, adult
CPT/HCPCS: 71045; 74176; 80048; 80053; 80076; 80307; 81003; 82962; 83690; 84484; 85025; 93005; 99285; C9113; J1644; J2270; J2405; J2765; J7030; 36415-L1; 36415-TC